=== PATIENT | female | born 1945 | race Caucasian/White ===

== ENCOUNTER 2016-10-18 08:35 | Outpatient (CLI) | payer OTHER | END 2016-10-18 19:04 | disposition home or self-care (01) | LOC: SMA 08:35 | PROVIDERS: ATTEND Family Medicine | DX: Z12.31 Encounter for screening mammogram for malignant neoplasm of breast (principal) | CPT/HCPCS: 77067; G0202 ==

== ENCOUNTER 2017-11-08 09:18 | Outpatient (CLI) | payer OTHER | END 2017-11-08 19:48 | disposition home or self-care (01) | LOC: SMA 09:18 | PROVIDERS: ATTEND Family Medicine | DX: Z12.31 Encounter for screening mammogram for malignant neoplasm of breast (principal); I10 Essential (primary) hypertension; I70.0 Atherosclerosis of aorta | CPT/HCPCS: 71046-TC; 77067 ==

== ENCOUNTER 2018-11-13 09:47 | Outpatient (CLI) | payer OTHER | END 2018-11-13 21:15 | disposition home or self-care (01) | LOC: SMA 09:47 | PROVIDERS: ATTEND Family Medicine | DX: Z12.31 Encounter for screening mammogram for malignant neoplasm of breast (principal) | CPT/HCPCS: 77067 ==

== ENCOUNTER → 2020-08-24 | Outpatient (CLI) | payer OTHER | END | disposition home or self-care (01) | LOC: SMA 10:13 | PROVIDERS: ATTEND Family Medicine | DX: Z12.31 Encounter for screening mammogram for malignant neoplasm of breast (principal) | CPT/HCPCS: 77067 ==

== ENCOUNTER 2022-09-11 05:20 | Day surgery (SDC) | payer OTHER ==
[~2022-09-11] VITALS: Ht 154.9 cm; Wt 79.8 kg
[2022-09-11] MEDS ORDERED: CEFAZOLIN SOD 1 GM/ ISO 50 ML PREMIX IV ONE (07:00)
[2022-09-11] MEDS ORDERED: BUPIVACAINE /PF 0.5% 30 ML VIAL ONE (07:35)
[2022-09-11] MEDS ORDERED: NS 50 ML BAG IV ONE (07:35)
[2022-09-11] MEDS ORDERED: METOCLOPRAMIDE HCL 10 MG/2 ML VIAL ONE (07:35)
[2022-09-11] MEDS ORDERED: PROPOFOL 200MG/ 20ML VIAL (DIPRIVAN) IV ONE (07:35)
[2022-09-11] MEDS ORDERED: SUCCINYLCHOLINE CHLORIDE 20 MG/ML(QUELICIN) ONE (07:35)
[2022-09-11] MEDS ORDERED: ceFAZolin SODIUM 1 GM VIAL ONE (07:35)
[2022-09-11] MEDS ORDERED: LR 1,000 ML IV.SOLN IV ONE (07:35)
[2022-09-11] MEDS ORDERED: ROCURONIUM BROMIDE 10 MG/ML (ZEMURON) ONE (07:35)
[2022-09-11] MEDS ORDERED: SUGAMMADEX SODIUM 200 MG/2 ML VIAL IV ONE (07:35)
[2022-09-11] MEDS ORDERED: MEPERIDINE 100 MG INJ. 100 MG/ML VIAL ONE (07:35)
[2022-09-11] MEDS ORDERED: NS IRRIG SOLN 1000 ML IR ONE (07:35)
[2022-09-11] MEDS ORDERED: fentaNYL CITRATE/PF 100 MCG/2 ML AMP ONE (07:35)
[2022-09-11] MEDS ORDERED: SEVOFLURANE 15 MIN GAS INH ONE (07:35)
[2022-09-11] MEDS ORDERED: METOPROLOL TARTRATE 5 MG/5 ML VIAL ONE (07:35)
[2022-09-11] MEDS ORDERED: BUPIVACAINE /EPINEPHRINE/PF 0.5% 30 ML VIAL INJ ONE (07:35)
[2022-09-11] MEDS ORDERED: HYDROmorphone 1 MG/ML INJ. CARTRIDGE IVP PRN (08:15)
[2022-09-11] MEDS ORDERED: METOCLOPRAMIDE HCL 10 MG/2 ML VIAL IVP PRN (08:15)
[2022-09-11] MEDS ORDERED: ONDANSETRON HCL 4 MG/2 ML VIAL IVP PRN (08:15)
[2022-09-11] MEDS ORDERED: NACL 0.9% 1,000 ML IV SCH (08:15)
[2022-09-11] MEDS ORDERED: KETOROLAC TROMETHAMINE 30 MG VIAL IVP PRN (08:15)
[2022-09-11] MEDS ORDERED: MEPERIDINE HCL/PF 25 MG/ML DISP.SYRIN IVP PRN (08:15)
[2022-09-11] MEDS ORDERED: HYDROcodone/ACETAMIN 5-325 MG TAB (NORCO/ VICODIN) PO PRN ×2 (09:30)
[2022-09-11] MEDS ORDERED: D5/0.45 NS 1,000 ML IV SCH (09:30)
[2022-09-11 14:32] VITALS: BP_SYST 136
== END 2022-09-11 12:05 | disposition home or self-care (01) ==
LOC: SDS 05:20 → SMU 05:20 → SDS 12:05
PROVIDERS: ATTEND Colon & Rectal Surgery
DX: K80.10 Calculus of gallbladder with chronic cholecystitis without obstruction (principal); K42.0 Umbilical hernia with obstruction, without gangrene; I10 Essential (primary) hypertension; E11.9 Type 2 diabetes mellitus without complications; E66.9 Obesity, unspecified; E78.5 Hyperlipidemia, unspecified; Z68.32 Body mass index [BMI] 32.0-32.9, adult; I48.91 Unspecified atrial fibrillation; Z79.82 Long term (current) use of aspirin; Z79.84 Long term (current) use of oral hypoglycemic drugs; Z79.899 Other long term (current) drug therapy; Z20.822 Contact with and (suspected) exposure to COVID-19
CPT/HCPCS: 87081; 49592; 47563; 36415; 74300; 88302; 88304; 87426; J3490 ×3; J0690 ×2; J2765; J2704; J0330; J3010; J2175; Q9967; J7120; C1781